=== PATIENT | female | born 1960 | race Caucasian/White ===

== ENCOUNTER → 2020-11-28 | Outpatient (CLI) | payer MEDICARE, OTHER ==
[~2020-11-28] MED LIST: CEPH500 PO
== END | disposition home or self-care (01) ==
LOC: LAB SHORT 14:00 → LAB UCHC 14:00
DX: L03.116 Cellulitis of left lower limb (principal)
CPT/HCPCS: 87070; 87075; 87077; 87147; 87186; 87205